=== PATIENT | female | born 2005 | race Caucasian/White ===

== ENCOUNTER 2025-02-06 14:55 | Outpatient (CLI) | payer SELFPAY ==
[2025-02-06 15:22] VITALS: BP 131/80; PULSE 82
[2025-02-06 15:23] VITALS: PULSE 89; O2SAT 97
[2025-02-06 15:24] VITALS: RESP 14; TEMP 36.7; O2SAT 99
[2025-02-06 16:11] LABS: ROM Internal Control Test YES-OK TO RESULT pt. (Internal QC); ROM Patient Test Negative (Negative)
[2025-02-06 16:12] LABS: Record Kit Lot#, ROM+ K3358
--- NOTE | 2025-02-07 07:03 | OB.TRI.NOTE ---
HPI - General General Date of Admission: 02/06/25 Date of Service: 02/06/25 Chief Complaint: Leaking HPI Narrative CINDI TINAJERO, is a 19 F who presents possible leaking of fluid and cramping since 7 am. Negative ROM. Closed cervix. Reactive tracing Maternal Data Information Final EDDA: 03/10/25 Gestational age: 35+3 PFSH History 1 Elective abortions Hx Para Spontaneous abortions Hx # Term Pregnancies Ectopic pregnancies Hx # Pregnancies Multiple births # of living children NST FHR Rate Baby A Baseline: 130 Variability:: Moderate Accelerations:: 15 x 15 Decelerations:: None NST Reactive:: Yes Assessment & Plan (1) Suspected rupture of membranes not found for normal first : (2) 35 weeks gestation of : PLAN: Plan Not ruptured. Not labor. Discharge home
== END 2025-02-06 16:30 | disposition home or self-care (01) ==
LOC: WPOUT 15:06 → WP 15:07
PROVIDERS: Advanced Practice Midwife; Referring Provider Obstetrics & Gynecology; Visit Provider Obstetrics & Gynecology
DX: Z03.71 Encounter for suspected problem with amniotic cavity and membrane ruled out (principal); O99.892 Other specified diseases and conditions complicating childbirth; R25.2 Cramp and spasm; Z3A.35 35 weeks gestation of pregnancy
CPT/HCPCS: 59025; 59050; 84112; 99221; G0378

== ENCOUNTER 2025-02-13 12:32 | Outpatient (CLI) | payer SELFPAY ==
[2025-02-13 12:55] VITALS: BP 130/80; PULSE 85; RESP 16; TEMP 37.2
[2025-02-13 13:02] VITALS: BMI 33.6
[2025-02-13 13:48] LABS: ROM Internal Control Test YES-OK TO RESULT pt. (Internal QC); ROM Patient Test Negative (Negative); Record Kit Lot#, ROM+ K3358
--- NOTE | 2025-02-13 18:25 | OB.TRI.HP_ITS ---
HPI - General General Date of Admission: 02/13/25 Date of Service: 02/13/25 Chief Complaint: leaking fluid HPI Narrative CINDI TINAJERO, is a 19 F who presents with possible ROM. No bleeding. Some contractions. Maternal Data Information EDDA Calculator Estimated Delivery Date Method Current WG Current Estimate 03/10/25 Manual 36w 4d Final EDDA: 03/10/25 Gestational age: 36+4 PFSH PFSH Home Medications ?Medication ?Instructions ?Recorded ?Last Taken ?Type vit no.95-ferrous 1 tab PO DAILY 02/13/25 Unk nown History fumarate 28 mg-folic acid 800 mcg tablet () Allergy/AdvReac Type Severity Reaction Status Date / Time No Known Allergies Allergy Verified 02/13/25 13:03 History 1 Elective abortions Hx Para Spontaneous abortions Hx # Term Pregnancies Ectopic pregnancies Hx # Pregnancies Multiple births # of living children NST FHR Rate Baby A Baseline: 130 Variability:: Moderate Accelerations:: 15 x 15 Decelerations:: None NST Reactive:: Yes Uterine Activity:: Occasional Assessment & Plan (1) Suspected rupture of membranes not found for normal first : (2) 36 weeks gestation of : PLAN: Plan Cervix closed per nursing. ROM negative Reassuring FHR tracing
== END 2025-02-13 14:05 | disposition home or self-care (01) ==
LOC: WPOUT 12:35 → WP 12:35
PROVIDERS: Referring Provider Obstetrics & Gynecology; Visit Provider Obstetrics & Gynecology
DX: Z03.71 Encounter for suspected problem with amniotic cavity and membrane ruled out (principal); Z3A.36 36 weeks gestation of pregnancy
CPT/HCPCS: 59025; 59050; 84112; 99221; G0378

== ENCOUNTER 2025-02-21 03:02 | Inpatient (IN) | payer MEDICAID, SELFPAY ==
[2025-02-21] VITALS (94 sets, daily range): BP systolic 97–147; BP diastolic 50–94; PULSE 60–163; RESP 16–18; TEMP 36–37.1; O2SAT 76–100; BMI 33.8
[2025-02-21 04:09] LABS: Absolute Lymphocyte Count 2.84 X10^3/uL (0.83-4.51); Absolute Neutrophil Count 9.3 X10^3/uL (2.0-7.7); Basophil# 0.04 X10^3/uL; Basophil% 0.3 % (0-1); Eosinophil# 0.08 X10^3/uL; Eosinophils% 0.6 % (0-5); Hematocrit 35.6 % (37-47); Hemoglobin 11.9 g/dL (12.0-15.0); Lymphocyte # 2.84 X10^3/ul (0.83-4.51); Lymphocyte % 21.4 % (19-41); Mean Corp Hgb Conc 33.4 g/dL (32-36); Mean Corpuscular Hgb 29.5 pg (27.0-32.0); Mean Corpuscular Volume 88.3 fL (81-99); Mean Platelet Vol. 11.5 fl (6.2-12.0); Monocyte# 0.98 X10^3/uL; Monocyte% 7.4 % (0-10); NRBC Flagged by Analyzer 0 % (0-5); Neutrophil # 9.26 X10^3/uL (2.7-7.7); Neutrophil % 69.7 % (47-70); Platelet Count 295 K/mm3 (150-450); RBC Distribution Width CV 14.7 % (11.6-14.6); RBC Distribution Width SD 47.3 fl (35.1-43.9); Red Blood Count 4.03 M/mm3 (4.2-5.4); White Blood Count 13.3 K/mm3 (4.4-11.0)
[2025-02-21 04:15] LABS: Syphilis Antibodies Nonreactive (Nonreactive)
--- NOTE | 2025-02-21 06:09 | PCM.HP.OB ---
HPI - General General Date of Admission: 02/21/25 Date of Service: 02/21/25 Chief Complaint: contractions HPI Narrative CINDI TINAJERO, is a 19 F who presents increasing painful contractions. Cervical change for 3 cm to 4 cm. Previous exam was 1 cm. Maternal Data Information EDDA Calculator Estimated Delivery Date Method Current WG Current Estimate 03/10/25 Manual 37w 4d Final EDDA: 03/10/25 Gestational age: 37+4 PFSH PFSH Medical History Depression Anxiety Home Medications ?Medication ?Instructions ?Recorded ?Last Taken ?Type vit no.95-ferrous 1 tab PO DAILY 02/13/25 02/20/25 21:00 History fumarate 28 mg-folic acid 800 mcg tablet () aspirin 81 mg chewable tablet 1 tab PO DAILY 02/21/25 02/20/25 21:00 History (Aspirin Childrens) famotidine 20 mg tablet (Pepcid) 20 mg PO DAILY 02/21/25 02/20/25 21:00 History Allergy/AdvReac Type Severity Reaction Status Date / Time No Known Allergies Allergy Verified 02/21/25 00:51 Surgical History no surgical history Social History Smoking Status: Current every day smoker tobacco type: smokeless tobacco History 1 Elective abortions Hx Para 0 Spontaneous abortions Hx # Term Pregnancies Ectopic pregnancies Hx # Pregnancies Multiple births # of living children NST FHR Rate Baby A Baseline: 135 Variability:: Moderate Accelerations:: 15 x 15 Decelerations:: None NST Reactive:: Yes ROS Constitutional Constitutional: Denies fatigue, fever(s) or malaise Eyes Eyes: Denies change in vision ENT HEENT: Denies dizziness or headache(s) Cardiovascular Cardiovascular: Denies chest pain, dyspnea or lightheadedness Respiratory/Chest Respiratory/Chest: Denies cough or dyspnea Gastrointestinal Gastrointestinal: Denies change in bowel habits Genitourinary Genitourinary: Denies burning urination or genital lesions Integumentary Integumentary: Denies rash Neurologic Neurologic: Denies confusion, dizziness, headache(s), numbness or weakness Vital Signs Vital Signs Vital Signs: 02/21/25 00:56 02/21/25 00:56 02/21/25 00:56 Temperature Temperature Source Temporal Pulse Rate 103 H Respiratory Rate Blood Pressure 123/80 H BP Systolic 123 BP Diastolic 80 Pulse Ox 02/21/25 00:56 02/21/25 00:56 02/21/25 00:56 Temperature 96.8 F L Temperature Source Pulse Rate Respiratory Rate 16 Blood Pressure BP Systolic BP Diastolic Pulse Ox 98 Weight Weight: 86.6 kg Body Mass Index (BMI) 33.8 Physical Exam Const alert and no apparent distress General Appearance: cooperative HEENT normocephalic Resp normal respiratory effort GI soft to palpation GI Narrative: gravid, nontender, appropriate for gestational age Extremity no calf tenderness General Extremity: edema Skin no wounds Rashes: No rashes noted Psych activity/motor behavior normal Labs Labs Labs: Blood Type O POSITIVE Antibody Screen NEGATIVE Hct 35.6 % (37-47) L Hgb 11.9 g/dL (12.0-15.0) L Syphilis Total Ab Nonreactive (Nonreactive) Assessment & Plan (1) 37 weeks gestation of : (2) Normal labor and delivery: PLAN: Plan Admit for labor Epidural prn
[2025-02-21] MEDS: 0.9% Saline Lock 10 ML Syringe IV (07:54)
[2025-02-21] MEDS: Lactated Ringers 1,000 ML 50 ML IV (07:56)
--- NOTE | 2025-02-21 08:23 | PCM.PN.OB ---
Subjective Subjective Resting in bed, breathing through contractions. Mother and FOB at bedside Objective Data Objective Data Vital Signs: Vital Signs Temp Pulse Resp BP Pulse Ox 97.8 F 94 16 128/94 H 98 02/21/25 07:45 02/21/25 07:46 02/21/25 07:45 02/21/25 07:46 02/21/25 00:56 Weight: 190 lb 14.725 oz Body Mass Index (BMI) 33.8 Lab / Micro Data 02/21/25 03:20 Labs: Laboratory Results - last 24 hr 02/21/25 03:20: WBC 13.3 H, RBC 4.03 L, Hgb 11.9 L, Hct 35.6 L, MCV 88.3, MCH 29.5, MCHC 33.4, RDW Std Deviation 47.3 H, RDW Coeff of Williams 14.7 H, Plt Count 295, MPV 11.5, Immature Gran % (Auto) 0.600, Neut % (Auto) 69.7, Lymph % (Auto) 21.4, [place] % (Auto) 7.4, Eos % (Auto) 0.6, Baso % (Auto) 0.3, Absolute Neuts (auto) 9.3 H, Absolute Lymphs (auto) 2.84, Nucleated RBC % 0, Syphilis Total Ab Nonreactive, Blood Type O POSITIVE, Antibody Screen NEGATIVE Physical Exam Manual OB Exam: estimated gestational size appropriate, presentation cephalic, dilated 6 cm, effaced 70%, station -1 and other AROM moderate amount of clear fluid NST FHR Rate Baby A Baseline: 135 Variability:: Moderate Accelerations:: 15 x 15 Decelerations:: None FHR Category:: Category I Uterine Activity:: Every 2-4 minutes Assessment & Plan (1) 37 weeks gestation of : (2) Active labor at term: PLAN: Plan 1) AROM 2) EFM with transition to IA after AROM if reactive 3) Epidural or pain ,management upon request 4) Dr.James hull physician and updated on patient status, above assessment, and plan of care.
[2025-02-21] MEDS: Lactated Ringers 1,000 ML 999 ML IV (08:30)
[2025-02-21] MEDS: fentaNYL-bupivacaine (epidural) 100 ML BAG EPIDURAL ×3 (09:55→19:34)
[2025-02-21] MEDS: Ondansetron 4 MG/2 ML Vial IV (11:07)
[2025-02-21] MEDS: Oxytocin 15 Units/NS 250ml 15 UNITS/250 ML IV.SOLN 2 UNITS IV (12:12)
[2025-02-21] MEDS: Lactated Ringers 1,000 ML 200 ML IV ×2 (13:59→18:59)
--- NOTE | 2025-02-21 19:28 | PN.OBGYN_ITS ---
Subjective Subjective Pushing for 3 hours. Mother and FOB at bedside. Epidural for pain management. Objective Data Objective Data Vital Signs: Vital Signs Temp Pulse Resp BP Pulse Ox 98.0 F 96 18 102/59 L 97 02/21/25 18:33 02/21/25 19:23 02/21/25 18:33 02/21/25 18:36 02/21/25 19:23 Weight: 190 lb 14.725 oz Body Mass Index (BMI) 33.8 Intake & Output: Intake and Output for Last 24 Hours 02/19/25 02/20/25 02/21/25 23:59 23:59 23:59 Intake Total 2903.77 / 2903.77 Balance 2903.77 / 2903.77 Lab / Micro Data 02/21/25 03:20 Labs: Laboratory Results - last 24 hr 02/21/25 03:20: WBC 13.3 H, RBC 4.03 L, Hgb 11.9 L, Hct 35.6 L, MCV 88.3, MCH 29.5, MCHC 33.4, RDW Std Deviation 47.3 H, RDW Coeff of Williams 14.7 H, Plt Count 295, MPV 11.5, Immature Gran % (Auto) 0.600, Neut % (Auto) 69.7, Lymph % (Auto) 21.4, [place] % (Auto) 7.4, Eos % (Auto) 0.6, Baso % (Auto) 0.3, Absolute Neuts (auto) 9.3 H, Absolute Lymphs (auto) 2.84, Nucleated RBC % 0, Syphilis Total Ab Nonreactive, Blood Type O POSITIVE, Antibody Screen NEGATIVE Physical Exam Manual OB Exam: presentation cephalic, dilated 10, effaced 100 and station +2 NST FHR Rate Baby A Baseline: 135 Variability:: Moderate Accelerations:: 15 x 15 Decelerations:: Variable FHR Category:: Category II Uterine Activity:: every 1-5 minutes Assessment & Plan (1) Active labor at term: PLAN: Plan 1) Pushing for 3 hours. No descent in last 1.5 hrs while pushing with patient. called to L&D for evaluation and patient is getting increaed fatigue, no descent, no labial seperation with pushing efforts 2) Category 2 FHT
[2025-02-21] MEDS: Lidocaine 1% (20 ml mdv) 20 ML Vial INFILT (20:05)
[2025-02-21] MEDS: Oxytocin 15 Units/NS 250ml 15 UNITS/250 ML IV.SOLN 83 UNITS IV (20:29)
--- NOTE | 2025-02-21 20:46 | OB.VAGDELI_ITS ---
Maternal Data Information EDDA Calculator Estimated Delivery Date Method Current WG Current Estimate 03/10/25 Manual 37w 4d Vaginal Delivery Maternal Presentation Maternal Presentation: Active Labor Type of Induction: Pitocin Vaginal Delivery Information Procedure Performed: Spontaneous Vaginal Delivery Surgeon/Practitioner: Jia Mistry Date of Procedure: 02/21/25 Pre-Procedure Diagnosis: Labor Post-Procedure Diagnosis: Labor Type of anesthesia: Epidural Estimated Blood Loss: 450ml Findings Description of procedure: Called to room by CNM when patient C/C/+2. Patient had been pushing for over 3 hours with no further descent the past 1.5 hours. She was becoming fatigued. Patient counseled on R/B/A of vacuum delivery. position had been confirmed. Vacuum applied and position on head confirmed. Good descent noted with first pull and pop off occurred. With the next contraction vacuum replaced and again good descent noted with contraction (and maternal pushing effort). Vacuum was released. With the 6th pull of the vacuum the vacuum popped off again. The head was and tight perineal band noted. 2nd degree midline episiotomy cut. With the next contraction the head delivered. head was gently guided to allow delivery of anterior and posterior shoulders. No excess traction placed on the head. The body delivered. 3VC clamped and cut in delayed fashion. Placenta delivered with gentle traction and good uterine tone obtained. 4th degree laceration then r epaired. Rectal mucosa was repaired in running fashion. Then the anal sphincter was repaired with 4 figure of eight sutures using 3-0 chromic. The remaining laceration was repaired in typical 2nd degree fashion. Presentation: REMY Amniotic Membrane Rupture Type: Artificial Amniotic Fluid Description: Clear Placental Delivery Description: Expressed Placenta Disposition: [facility] Cord Vessel Description: 3 Vessels Cord Entanglement: None Infant A Gender: Male (1 minute): 8 (5 minute): 9 Delayed Cord Clamping: Yes [employer] customer solutions specialist: No Post Vaginal Deli Medications given after delivery: IV Pitocin Episiotomy Description: 2nd degree Laceration: 4th Degree Complication Complications: Yes Complication Details: See delivery note for 4th degree repair
[2025-02-21] MEDS: Acetaminophen 500 MG Tablet 1000 MG PO (21:10)
[2025-02-21] MEDS: Ibuprofen 600 MG Tablet PO (23:23)
[2025-02-22 00:40] VITALS: BP 125/85; PULSE 110; RESP 16; TEMP 36.9; O2SAT 97
[2025-02-22 05:00] VITALS: BP 122/81; PULSE 86; RESP 16; TEMP 36.6; O2SAT 100
[2025-02-22] MEDS: Acetaminophen 500 MG Tablet 1000 MG PO ×3 (05:23→22:07)
[2025-02-22 05:50] LABS: Absolute Lymphocyte Count 2.59 X10^3/uL (0.83-4.51); Absolute Neutrophil Count 13.8 X10^3/uL (2.0-7.7); Basophil# 0.03 X10^3/uL; Basophil% 0.2 % (0-1); Eosinophil# 0.03 X10^3/uL; Eosinophils% 0.2 % (0-5); Hematocrit 31.4 % (37-47); Hemoglobin 10.3 g/dL (12.0-15.0); Lymphocyte # 2.59 X10^3/ul (0.83-4.51); Lymphocyte % 14.6 % (19-41); Mean Corp Hgb Conc 32.8 g/dL (32-36); Mean Corpuscular Volume 91.5 fL (81-99); Mean Platelet Vol. 11.1 fl (6.2-12.0); Monocyte# 1.21 X10^3/uL; Monocyte% 6.8 % (0-10); NRBC Flagged by Analyzer 0 % (0-5); Neutrophil # 13.83 X10^3/uL (2.7-7.7); Neutrophil % 77.7 % (47-70); Platelet Count 267 K/mm3 (150-450); RBC Distribution Width CV 14.9 % (11.6-14.6); RBC Distribution Width SD 50.3 fl (35.1-43.9); Red Blood Count 3.43 M/mm3 (4.2-5.4); White Blood Count 17.8 K/mm3 (4.4-11.0)
--- NOTE | 2025-02-22 06:22 | NURSING ---
This RN assisted patient with sitz bath as treatment for 4th degree laceration and episiotomy for approx 15 minutes. Patient states pain was relieved with sitz bath, this RN assisted patient with guera care after sitz bath and educated on benefits of this.
[2025-02-22 08:00] VITALS: BP 121/76; PULSE 77; RESP 18; TEMP 37.1; O2SAT 99
--- NOTE | 2025-02-22 08:17 | PN_ITS ---
Subjective Subjective patient seen at bedside, doing well. Patient reports good pain control. lochia mild. voiding w/o difficulty. Objective Data Objective Data Vital Signs: Vital Signs Temp Pulse Resp BP Pulse Ox O2 Del Method 97.8 F 86 16 122/81 H 100 Room Air 02/22/25 05:00 02/22/25 05:00 02/22/25 05:00 02/22/25 05:00 02/22/25 05:00 02/22/25 05:00 Oxygen Delivery Method Room Air Weight: 86.6 kg Body Mass Index (BMI) 33.8 Intake & Output: Intake and Output for Last 24 Hours 02/20/25 02/21/25 02/22/25 23:59 23:59 23:59 Intake Total 3556.93 / 3556.93 Output Total 650 / 650 500 / 500 Balance 2906.93 / 2906.93 -500 / -500 Lab / Micro Data 02/22/25 05:37 Labs: Laboratory Results - last 24 hr 02/22/25 05:37: WBC 17.8 H, RBC 3.43 L, Hgb 10.3 L, Hct 31.4 L, MCV 91.5, MCH 30.0, MCHC 32.8, RDW Std Deviation 50.3 H, RDW Coeff of Williams 14.9 H, Plt Count 267, MPV 11.1, Immature Gran % (Auto) 0.500, Neut % (Auto) 77.7 H, Lymph % (Auto) 14.6 L, [place] % (Auto) 6.8, Eos % (Auto) 0.2, Baso % (Auto) 0.2, Absolute Neuts (auto) 13.8 H, Absolute Lymphs (auto) 2.59, Nucleated RBC % 0 Physical Exam Narrative abd: fundus firm Const alert and oriented x3 General Appearance: cooperative HEENT normocephalic Neck General: normal visual inspection GI soft to palpation and non-distended GI Narrative: Fundus firm Extremity normal to inspection and no calf tenderness Skin no rashes or lesions noted Neuro oriented x3 and CN's II-XII intact bilaterally Psych mental status grossly normal Assessment & Plan Assessment/Plan (1) Vacuum-assisted vaginal delivery: (2) Fourth degree perineal laceration during delivery: PLAN: Plan PPD#1 , Doing well- s/p vacuum assisted delivery with 4th degree maternal laceration Routine care pain mgmt ambulation continue low residue diet stool softeners, ice packs to perineum Has appt set up with Perineal wound clinic anticipate dc home tomorrow
[2025-02-22] MEDS: Ibuprofen 600 MG Tablet PO ×2 (11:46→19:51)
[2025-02-22 12:30] VITALS: BP 116/73; PULSE 83; RESP 18; TEMP 36.6; O2SAT 100
[2025-02-22] MEDS: Senna/Docusate Sodium 1 Tablet PO (14:02)
[2025-02-22 15:36] VITALS: BP 119/70; PULSE 80; RESP 16; TEMP 36.3; O2SAT 99
[2025-02-22 19:53] VITALS: BP 120/82; PULSE 77; RESP 16; TEMP 36.3; O2SAT 98
[2025-02-23] MEDS: Ibuprofen 600 MG Tablet PO ×2 (01:51→13:25)
[2025-02-23 02:00] VITALS: BP 123/91; PULSE 71; RESP 18; TEMP 36.3; O2SAT 99
[2025-02-23 08:13] VITALS: BP 125/90; PULSE 69; RESP 14; TEMP 36.4
[2025-02-23] MEDS: Acetaminophen 500 MG Tablet 1000 MG PO (08:20)
--- NOTE | 2025-02-23 10:42 | CASEMGMT ---
Social Work Assessment Labor and Delivery Unit Patient Address: [address] [place] [address] Phone number: [phone] Date of Intervention: ??02/23/25 Time of Intervention:? 0900 Reason for Referral:? mental health Sw informed by bedside Rn that mother of baby (ESTEPHANIE Quinones) has history of mental health. Sw completed chart review and notes that DELLA has been diagnosed with depression and anxiety. No official consult entered at this time. Sw presented to bedside and introduced self to DELLA. Sw explained reason for sw involvement and completed psychosocial assessment. History obtained from: medical records, MOB Household composition:DELLA reports that she is currently residing with her parents, her three younger siblings and father of baby (FOB- Harmeet Gutiérrez). [place] baby to be included in residence when ready for discharge. MOB reports that their home is safe and secure, denies any problems. Patient's parent/guardian status:? MOB state that she and FOAnne have been together for a year after meeting each other online. MOB reports that relationship is healthy, denies any domestic violence or intimate partner violence. ? Medical History: ?DELLA is 19 year old female who is 1, para 0- now 1 following labor and delivery of . DELLA received routine care during with [facility]. DELLA presented to hospital and delivered baby via vaginal delivery on 02/21/25 at 37 weeks gestation. Baby boy, named Giana Mistry, was born weighig 7lb 10oz and had apgars of 8 and 9 at one and five minutes of life, respectfully. DELLA is bottle feeding baby and reports baby will be followed by Dr. Wakefield at [facility]. Educational Status:? DELLA and FOB both graduated from high school. MOB denies problems with reading, learning or comprehension Financial Status: DELLA is employed at [employer], and states that FOB is unemployed at this time. DELLA does receive financial support from her parents along with food help as well. Infant Supplies: All necessary baby supplies obtained, including: car seat, safe sleep space, clothes, diapers and wipes. Childcare/Caregiver(s):? DELLA will be the primary caregiver to baby, along with her mom when she returns to work in May following her maternity leave. Transportation:?? DELLA does not drive, she reports that her mom takes her to and from appointments and work. MOB states that AIME has a drivers license but it is suspended due to going 20 miles per hour over the speed limit. Programs/Agencies Involved: ??DELLA is connected to insurance through [employer], [facility] and the [facility]. ? Children Services/Legal Issues:??No history of involvement with children's services. No issues or concerns warranting referral to be made at this time. ? Behavioral Health Issues: ??Mental Health History: DELLA reports that she has been diagnosed with anxiety and depression. DELLA was previously prescribed medications to help her manage her mental health although she is unable to recall the prescription at this time. DELLA states that she did have some anxiety and depression during her and is ready to start back up on her psychotropic medications now that baby is born. ??? Substance Use History:?DELLA denies substance use prior to and during . ? Family History:??No family history of substance use or significant mental health diagnoses??? Drug Screens: NO drug screens observed while completing chart review. Family/Social Stressors:? DELLA denies any issues, concerns or stressors at this time. Support Systems: Reports that her parents are her biggest supports at this time. Depression/Shaken Baby/Safe Sleeping: Sw educated DELLA on signs and symptoms of baby blues and depression and anxiety. DELLA completed an [place] Depression Scale and her score was a 12, which meets the thresh hold for anxiety and depression. DELLA reports that if she were to struggle with her mental health during this time she would talk to her parents about it. DELLA is also open to getting reconnected to a mental health support person if she were to struggle. DELLA states that she was on medication prior to and stopped when she learned she was . DELLA states that she is also wanting to get back on medication to also assist her during this time. Carmen encouraged DELLA to talk to her OBGYN who would be able to prescribe MOB with something, and then MOB could have her PCP pecan picker the script for more buttermaker. MOB expressed understanding and agreement. ASSESSMENT:? MOB and baby admitted following labor and delivery of . DELLA received routine care during . DELLA reports that she has been in a relationship with AIME for a year after meeting online. was not planned, but accepted. DELLA reports that she currently continues to reside with her parents who are her biggest supports at this time. MOB recognizes that she did struggle with some depression during her , reporting that she experienced feeling down, disinterested in activities and at times rageful. MOB states that now that baby is born she feels slightly anxious, but also reports to feeling a connection and kay with him. While meeting with MOB she was observed to be comfortable in her bed and would look over at baby who was in bassinet frequently. MOB states that she is looking forward to being discharged today. Sw educated MOB on shaken baby prevention and ABCs of safe sleep, MOB expressed understanding. PLAN:?? No other services requested or indicated. MOB and baby to be discharged when medically ready. Parents were provided literature regarding: signs and symptoms of baby blues and mood and anxiety disorders, Help Me Grow, shaken baby prevention, ABCs of safe sleep and a list of county resources that are available for them should any needs present themselves. Ileana Hyde, REMANUFACTURING TECHNICIAN, INSPECTOR [employer]
--- NOTE | 2025-02-23 12:53 | PCM.PN.OB ---
Subjective Subjective Pt doing well. Has vaginal soreness. No CP, SOB, leg pain, lightheadedness. Lochia normal. Ambulating and voiding without difficulty. Desires discharge to home. Objective Data Objective Data Vital Signs: Vital Signs Temp Pulse Resp BP Pulse Ox O2 Del Method 97.6 F L 69 14 125/90 H 99 Room Air 02/23/25 08:13 02/23/25 08:13 02/23/25 08:13 02/23/25 08:13 02/23/25 02:00 02/23/25 08:13 Oxygen Delivery Method Room Air Weight: 190 lb 14.725 oz Body Mass Index (BMI) 33.8 Intake & Output: Intake and Output for Last 24 Hours 02/21/25 02/22/25 02/23/25 23:59 23:59 23:59 Intake Total 3556.93 / 3556.93 Output Total 650 / 650 500 / 500 Balance 2906.93 / 2906.93 -500 / -500 Lab / Micro Data 02/22/25 05:37 Physical Exam Const alert and no apparent distress Constitutional Narrative: Resting in bed General Appearance: comfortable Assessment & Plan (1) Fourth degree perineal laceration during delivery: (2) Vacuum-assisted vaginal delivery: PLAN: PPD#2 doing well. Reviewed discharge instructions. Discussed hydration and stool softener. Discussed perineal wound clinic in 2 weeks after 1 week follow up in our office.
--- NOTE | 2025-02-23 12:56 | PCM.DC ---
Discharge Instructions Diet Discharge Diet: No restrictions DC O2, CPAP, BIPAP needs Home O2 Discharge instructions: No Dressing / Incision Discharge Activity: May Drive and May Shower May resume sexual activity in: 6 weeks Ice area for (Minutes): 15 Weight Bearing Status: Weight bearing as tolerated Lifting Restrictions: nothing heavier than baby Dressing / Incision Call your doctor if your incision/area has: Sudden Increased Bleeding, Increased Pain/ Swelling, Foul Smelling Discharge and Swelling at the incision site Call your doctor if you observe: Fever of 101 or Higher, Inability to urinate, Inability to have a bowel movement, Using more than 1 pad per hour, Shortness of breath, Dizziness, Chest pain, Increased palpitations (irregular heartbeat), Calf discomfort and Uncontrolled pain Suture Line Care: Avoid Pulling/Pushing Cleanse incision/area with: Soap & Water Follow Up Care Please Follow Up With: Jia Mistry MD When: 1 week follow up in the office Perineal wound clinic with [facility] in 2 weeks Test Results: Test results from this visit will be discussed in further detail at your follow-up appointment, if applicable. Discharge Plan Admission Admit Date/Time: 02/21/25 03:02 Primary Reason for Your Visit: Delivery Attending Provider: Huong Zaragoza Primary Care Provider: Skye Guzmán Primary Instructions Patient Instructions: After a Vaginal Delivery (WP) Discharge Orders/Prescriptions Prescriptions: New docusate sodium [Colace] 100 mg capsule 100 mg PO BID Qty: 60 0RF Continued PNV cmb#95-ferrous fumarate-FA [] 28 mg iron- 800 mcg tablet 1 tab PO DAILY Discontinued famotidine [Pepcid] 20 mg tablet 20 mg PO DAILY aspirin [Aspirin Childrens] 81 mg tablet,chewable 1 tab PO DAILY Referrals / Follow Up: Care Physician,No Primary [Primary Care Provider] - Disposition Disposition (needs filled in before D/C Order can be placed): Home, Self Care
--- NOTE | 2025-02-27 09:55 | NURSING ---
Follow up phone call attempted. No answer, LVM.
== END 2025-02-23 13:30 | disposition home or self-care (01) | DRG 542 ==
LOC: WPOUT 03:07 → WP 03:49
PROVIDERS: Advanced Practice Midwife; Admitting Provider Obstetrics & Gynecology; Referring Provider Obstetrics & Gynecology; Visit Provider Obstetrics & Gynecology
DX: O99.334 Smoking (tobacco) complicating childbirth (principal); Z37.0 Single live birth; F17.290 Nicotine dependence, other tobacco product, uncomplicated; O70.3 Fourth degree perineal laceration during delivery; Z3A.37 37 weeks gestation of pregnancy; Z79.82 Long term (current) use of aspirin; Z86.59 Personal history of other mental and behavioral disorders
CPT/HCPCS: 59025; 59050; 85025; 86780; 86850; 86900; 86901; A4216; J2405